=== PATIENT | female | born 1985 | race Asian ===

== ENCOUNTER 2023-05-11 20:59 | Emergency (ER) | payer MEDICAID ==
[~2023-05-11] VITALS: Ht 157.5 cm; Wt 63.5 kg
[2023-05-11] MEDS ORDERED: LEVO88TA2 PO (21:15)
[2023-05-11] MEDS ORDERED: ACET1TAB23 PO (23:18)
[2023-05-11 23:31] VITALS: BP 130/74; O2SAT 99
== END 2023-05-11 23:32 | disposition home or self-care (01) ==
LOC: ER 21:04
DX: J02.9 Acute pharyngitis, unspecified (principal); E03.9 Hypothyroidism, unspecified; Z79.899 Other long term (current) drug therapy
CPT/HCPCS: 86403; A4663